=== PATIENT | male | born 1990 | race African-American/Black ===

== ENCOUNTER 2016-12-01 17:32 | Emergency (ER) | payer BC ==
--- NOTE | 2016-12-01 18:09 | EDM.PDOC ---
ED HPI GENERAL MEDICAL PROBLEM - General Chief Complaint: ENT Problem Stated Complaint: PT HAS DIFFICULTY BREATHING Time Seen by Provider: 12/01/16 18:05 Source of Information: Reports: Patient History Limitations: Reports: No Limitations - History of Present Illness INITIAL COMMENTS - FREE TEXT/NARRATIVE: History of present illness: [ Male comes in complaining of sensation of shortness of breath. Indicates he does not feel like he can catch his breath was breathing well. Patient indicates he has had a fever off and on but has not been able to take his temperature so he can indicate how high it is gotten. Patient also indicates that he has some fullness in his throat and generally feeling unwell.] Review of systems: As per history of present illness and below otherwise all systems reviewed and negative. Past medical history: As per history of present illness and as reviewed below otherwise noncontributory. Surgical history: As per history of present illness and as reviewed below otherwise noncontributory. Social history: No reported history of drug or alcohol abuse. Family history: As per history of present illness and as reviewed below otherwise noncontributory. Physical exam: HEENT: Atraumatic, normocephalic, pupils reactive, negative for conjunctival pallor or scleral icterus, mucous membranes moist with slight oral pharyngeal erythema without white patchy exudate, throat clear, neck supple, nontender, trachea midline. Lungs: Clear to auscultation but diminished throughout right more so than left, breath sounds equal bilaterally, chest nontender. Heart: S1S2, regular, negative for clicks, rubs, or JVD. Abdomen: Soft, nondistended, nontender. Negative for masses or hepatosplenomegaly. Negative for costovertebral tenderness. Pelvis: Stable nontender. Genitourinary: Deferred. Rectal: Deferred. Extremities: Atraumatic, negative for cords or calf pain. Neurovascular unremarkable. Neuro: Awake, alert, oriented. Cranial nerves II through XII unremarkable. Cerebellum unremarkable. Motor and sensory unremarkable throughout. Exam nonfocal. Diagnostics: [Chest x-ray] Therapeutics: [DuoNeb, steroids] Impression: [Pharyngitis] Plan: [Z-Yaw] Definitive disposition and diagnosis as appropriate pending reevaluation and review of above. mouth Pain Score (Numeric/FACES): 3 - Related Data Allergies Allergy/AdvReac Type Severity Reaction Status Date / Time No Known Allergies Allergy Verified 12/01/16 17:48 Home Meds: Home Meds Azithromycin [IJD: Azithromycin] 250 mg PO DAILY #6 tab 12/01/16 [Rx] ED ROS ENT - Review of Systems Review Of Systems: See Below (See history of present illness) ED EXAM, ENT - Physical Exam Exam: See Below (See history of present illness) Course - Vital Signs Last Recorded V/S: Last Vital Signs Temp 36.4 C 12/01/16 19:03 Pulse 81 12/01/16 19:03 Resp 18 12/01/16 19:03 BP 148/80 H 12/01/16 19:03 Pulse Ox 100 12/01/16 19:03 - Orders/Labs/Meds Orders: Active Orders 24 hr Category Date Time Status RT Aerosol Therapy [RC] ASDIRECTED Care 12/01/16 18:11 Active CXR [Chest 2V] [CR] Stat Exams 12/01/16 18:15 Taken Meds: Medications Discontinued Medications Generic Name Dose Route Start Last Admin Trade Name Jasiel PRN Reason Stop Dose Admin Albuterol/Ipratropium 3 ml 12/01/16 18:11 12/01/16 18:18 Duoneb 3.0-0.5 Mg/3 Ml NEB 12/01/16 18:12 3 ml ONETIME ONE Administration Dexamethasone 4 mg 12/01/16 18:12 12/01/16 18:18 Dexamethasone PO 12/01/16 18:13 4 mg ONETIME ONE Administration Dexamethasone Confirm 12/01/16 18:17 12/01/16 18:28 Dexamethasone Administered 12/01/16 18:18 Not Given Dose 4 mg .ROUTE .STK-MED ONE Departure - Departure Time of Disposition: 19:12 Disposition: Home, Self-Care 01 Condition: Good Clinical Impression: Pharyngitis - Discharge Information Forms: ED Department Discharge Additional Instructions: The following information is given to patients seen in the emergency department who are being discharged to home. This information is to outline your options for follow-up care. We provide all patients seen in our emergency department with a follow-up referral. The need for follow-up, as well as the timing and circumstances, are variable depending upon the specifics of your emergency department visit. If you don't have a primary care physician on staff, we will provide you with a referral. We always advise you to contact your personal physician following an emergency department visit to inform them of the circumstance of the visit and for follow-up with them and/or the need for any referrals to a consulting specialist. The emergency department will also refer you to a specialist when appropriate. This referral assures that you have the opportunity for follow-up care with a specialist. All of these measure are taken in an effort to provide you with optimal care, which includes your follow-up. Under all circumstances we always encourage you to contact your private physician who remains a resource for coordinating your care. When calling for follow-up care, please make the office aware that this follow-up is from your recent emergency room visit. If for any reason you are refused follow-up, please contact the [facility] Emergency Department at and asked to speak to the emergency department charge nurse. Take medication as directed Follow-up with PCP 1-2 days Return to ED as needed as discussed [facility] [address] [place] [id number] - My Orders Last 24 Hours: My Active Orders 12/01/16 18:11 RT Aerosol Therapy [RC] ASDIRECTED 12/01/16 18:15 CXR [Chest 2V] [CR] Stat - Assessment/Plan Last 24 Hours: My Active Orders 12/01/16 18:11 RT Aerosol Therapy [RC] ASDIRECTED 12/01/16 18:15 CXR [Chest 2V] [CR] Stat
[2016-12-01] MEDS ORDERED: Albuterol/Ipratropium 3.0-0.5 MG/3 ML Neb Soln NEB ONE (18:11)
[2016-12-01] MEDS ORDERED: Dexamethasone 4 MG Tab PO ONE (18:12)
[2016-12-01] MEDS ORDERED: Dexamethasone 4 MG Tab ONE (18:17)
[2016-12-01 19:30] VITALS: BP 125/86
--- NOTE | 2016-12-03 13:06 | CR ---
EXAM DATE: 12/01/16 PATIENT'S AGE: 26 Patient: ADELINE CONWAY Facility: [place], [place] Site . Site : 1990 Study: XRay Chest [id number] 6:46:55 PM Ordering Physician: Doctor Christianson Final Report: Indication: Shortness of breath, fever. Comparison: None. Findings: There is a mild pectus excavatum. Cardiac mediastinal silhouettes are normal. The pulmonary vasculature is normal. The lungs are free of infiltrate. There are no pleural effusions. Impression: No active cardiopulmonary disease. Dictated by Norma Dobbins MD @ Dec 01 2016 7:04PM (Electronic Signature) Report Signed by Proxy. SINDHU
== END 2016-12-01 19:28 | disposition home or self-care (01) ==
LOC: MW.ED 17:32
DX: J02.9 Acute pharyngitis, unspecified (principal)
CPT/HCPCS: 71020; 99284; J8540; 99283

== ENCOUNTER 2017-01-12 12:08 | Emergency (ER) | payer BC ==
--- NOTE | 2017-01-12 13:21 | EDM.PDOC ---
ED HPI GENERAL MEDICAL PROBLEM - General Chief Complaint: Allergic Reaction Stated Complaint: ALLERGIC REACTION/ABD PAIN Time Seen by Provider: 01/12/17 12:33 Source of Information: Reports: Patient History Limitations: Reports: No Limitations - History of Present Illness INITIAL COMMENTS - FREE TEXT/NARRATIVE: HISTORY AND PHYSICAL: History of present illness: [26-year-old male with a history of anxiety which is not treated and otherwise no significant past medical history now presents emergency room and concerned that he might be having an allergic reaction. Patient was seen recently had a clinic with a complaint of right upper toothache. He was prescribed amoxicillin and after taking the first dose today patient states he got anxious felt a tiny bit short of breath and some chest tightness which was transient after which he experienced some abdominal cramping which is now resolved. He is currently asymptomatic. Patient never had any rash hives or itching. He had no wheezing or shortness of breath. No intraoral swelling or voice changes.] Review of systems: As per history of present illness and below otherwise all systems reviewed and negative. Past medical history: As per history of present illness and as reviewed below otherwise noncontributory. Surgical history: As per history of present illness and as reviewed below otherwise noncontributory. Social history: No reported history of drug or alcohol abuse. Family history: As per history of present illness and as reviewed below otherwise noncontributory. Physical exam: Well-appearing patient no acute distress normal oropharynx no stridor or swelling/edema. Clear lungs and regular rate and rhythm with no tachycardia and no bronchospasm. Normal exam. Patient is mildly anxious when discussing his medical situation HEENT: Atraumatic, normocephalic, pupils reactive, negative for conjunctival pallor or scleral icterus, mucous membranes moist, throat clear, neck supple, nontender, trachea midline. Area of toothache right maxillary anterior molar with no visible cavity swelling mass or drainage. Normal-appearing tooth. Supple neck with no adenopathy Lungs: Clear to auscultation, breath sounds equal bilaterally, chest nontender. Heart: S1S2, regular, negative for clicks, rubs, or JVD. Abdomen: Soft, nondistended, nontender. Negative for masses or hepatosplenomegaly. Negative for costovertebral tenderness. Pelvis: Stable nontender. Genitourinary: Deferred. Rectal: Deferred. Extremities: Atraumatic, negative for cords or calf pain. Neurovascular unremarkable. Neuro: Awake, alert, oriented. Cranial nerves grossly unremarkable. Cerebellum unremarkable. Motor and sensory unremarkable throughout. Exam nonfocal. Diagnostics: [] Therapeutics: [] Impression: [] Plan: [Signs and symptoms consistent with possible side effects to amoxicillin ingestion however patient has a very clearly contributory anxiety component as well. He has no evidence of systemic allergic reaction whatsoever and specifically no clinical evidence of airway involvement. His anxiety is mild, he is aware of it] . It is not debilitating or requiring acute treatment today. Discussed with patient will switch antibiotic for toothache and if he desires he can avoid amoxicillin based on what he perceives as side effects. He will follow-up with his dentist as previously directed as well as his primary care for reevaluation in one to 2 days. No further workup or treatment indicated. Patient agrees with outpatient follow-up and strict return precautions given Definitive disposition and diagnosis as appropriate pending reevaluation and review of above. abdomen Pain Score (Numeric/FACES): 6 - Related Data Allergies Allergy/AdvReac Type Severity Reaction Status Date / Time amoxicillin Allergy Shortness Verified 01/12/17 12:40 of Breath Home Meds: Home Meds Cephalexin [Keflex] 500 mg PO QID 10 Days 01/12/17 [Rx] Past Medical History - Past Health History Medical/Surgical History: Denies Medical/Surgical History HEENT History: Reports: None Cardiovascular History: Reports: None Respiratory History: Reports: None Gastrointestinal History: Reports: None Genitourinary History: Reports: None Musculoskeletal History: Reports: None Neurological History: Reports: None Psychiatric History: Reports: None Endocrine/Metabolic History: Reports: None Hematologic History: Reports: None Oncologic (Cancer) History: Reports: None Dermatologic History: Reports: None - Infectious Disease History Infectious Disease History: Reports: None Social & Family History - Family History Family Medical History: Noncontributory - Tobacco Use Smoking Status *Q: Never Smoker - Recreational Drug Use Recreational Drug Use: No ED ROS ALLERGIC REACTION - Review of Systems Review Of Systems: See Below (History of present illness) ED EXAM GENERAL NO PERIP PULSE - Physical Exam Exam: See Below (History of present illness) Course - Vital Signs Last Recorded V/S: Last Vital Signs Temp 36.8 C 01/12/17 12:30 Pulse 69 01/12/17 12:30 Resp 20 07/29/17 12:30 BP 133/86 01/12/17 12:30 Pulse Ox 99 01/12/17 12:30 - Orders/Labs/Meds Orders: Active Orders 24 hr Category Date Time Status EKG Documentation Completion [RC] STAT Care 01/12/17 12:58 Ordered Departure - Departure Time of Disposition: 13:20 Disposition: Home, Self-Care 01 Condition: Good Clinical Impression: Toothache, Anxiety about health, Medication side effects - Discharge Information Referrals: PCP,None [Primary Care Provider] - Additional Instructions: It appears that you may have had some side effects from your amoxicillin use. There is no evidence that you've had any kind of systemic allergic reaction to this medication though. Finish Keflex as prescribed for your toothache and follow-up with her dentist as previously directed. Follow-up with your DrEleni for reevaluation and to discuss possible treatment for your anxiety at this becomes an issue. Return for new severe or worsening symptoms - My Orders Last 24 Hours: My Active Orders 01/12/17 12:58 EKG Documentation Completion [RC] STAT - Assessment/Plan Last 24 Hours: My Active Orders 01/12/17 12:58 EKG Documentation Completion [RC] STAT
== END 2017-01-12 13:52 | disposition home or self-care (01) ==
LOC: MW.ED 12:08
CPT/HCPCS: 93005; 99282; 99283-25